=== PATIENT | female | born 1995 | race African-American/Black ===

== ENCOUNTER 2022-04-09 06:05 | Emergency (ER) | payer MEDICAID, OTHER ==
[~2022-04-09] VITALS: Ht 149.9 cm; Wt 70.3 kg
--- NOTE | 2022-04-09 06:05 | NUR ---
PT BROUGHT TO BED 9 VIA TERRY MARSH
[2022-04-09 06:06] VITALS: BP 101/53
--- NOTE | 2022-04-09 06:12 | NUR ---
Patient lying in bed, A/Ox4, chest rise and fall symmetrical, no s/s of distress.
--- NOTE | 2022-04-09 06:21 | NUR ---
Dr. Sánchez examining patient.
[2022-04-09] MEDS ORDERED: LIDOCAINE MPF 1% 10 MG/ML VIAL INJ ONE (06:30)
--- NOTE | 2022-04-09 06:39 | NUR ---
ER Physician at bedside performing woundcare and suturing.
[2022-04-09] MEDS ORDERED: BACITRACIN OINT 500 UNITS/GM PKT TP ONE ×2 (06:52→07:00)
[2022-04-09 07:24] VITALS: BP 127/72
--- NOTE | 2022-04-09 07:25 | NUR ---
Patient discharged with v/s stable. Written and verbal after care instructions given and explained. Patient verbalized understanding. Ambulatory with steady gait. All questions addressed prior to discharge. Advised to follow up with PMD.
== END 2022-04-09 07:25 | disposition home or self-care (01) ==
LOC: MED 06:05
DX: S51.812A Laceration without foreign body of left forearm, initial encounter (principal); Z98.890 Other specified postprocedural states; W22.8XXA Striking against or struck by other objects, initial encounter; Y93.89 Activity, other specified; Y92.89 Other specified places as the place of occurrence of the external cause; Y99.8 Other external cause status
CPT/HCPCS: 12002; 99283; J2001

== ENCOUNTER 2022-04-24 14:43 | Emergency (ER) | payer MEDICAID ==
[~2022-04-24] VITALS: Ht 180.3 cm; Wt 16.8 kg
[2022-04-24 14:47] VITALS: BP 137/70
--- NOTE | 2022-04-24 14:53 | NUR ---
BIB SELF FOR LEFT FOREARM SUTURE REMOVAL. SUTURE PLACED HERE 2 WEEKS AGO. DENIES N/V/D; SKIN IS PINK/WARM/DRY; AAOX4 WITH EVEN AND STEADY GAIT; LUNGS CLEAR BL; HR EVEN AND REGULAR; PT DENIES ANY FEVER, CP, SOB, OR COUGH AT THIS TIME; PATIENT STATES PAIN OF 0/10 AT THIS TIME.
--- NOTE | 2022-04-24 15:51 | NUR ---
Patient discharged with v/s stable. Written and verbal after care instructions ABOUT SUTURE REMOVAL given and explained. Patient verbalized understanding. Ambulatory with steady gait. All questions addressed prior to discharge. Advised to follow up with PMD.
== END 2022-04-24 15:51 | disposition home or self-care (01) ==
LOC: MED 14:43
DX: S51.812D Laceration without foreign body of left forearm, subsequent encounter (principal); Z48.02 Encounter for removal of sutures; W45.8XXD Other foreign body or object entering through skin, subsequent encounter
CPT/HCPCS: 99281